=== PATIENT | male | born 1965 | race Caucasian/White ===

== ENCOUNTER 2022-08-29 09:41 | Observation (INO) | payer OTHER, SELFPAY ==
[2022-08-29 08:45] VITALS: BP 118/72; PULSE 98; RESP 20; TEMP 36; O2SAT 97
[2022-08-29 10:24] LABS: Abs Immature Grans 0.01 10^3/uL (0.0-0.06); Absolute Basophil Count 0.02 10^3/uL (0.0-0.2); Absolute Lymphocyte Count 0.54 10^3/uL (1.2-3.4); Absolute Monocyte Count 0.64 10^3/uL (0.1-0.8); Absolute Neutrophil Count 4.48 10^3/uL (1.2-6.7); Basophils % 0.4; HCT 42.6 % (40.0-50.0); HGB 14.6 g/dL (13.5-17.5); Immature Grans % 0.2; Lymphocytes % 9.5; MCH 31.1 pg (27.0-33.0); MCHC 34.3 % (32.0-36.0); MCV 91 fL (80-95); MPV 9.1 fL (8.0-11.0); Monocytes % 11.2; Neutrophils % 78.7; Platelet Count 207 10^3/uL (130-400); RBC 4.69 10^6/uL (4.36-5.78); RDW 12.4 % (11.8-14.1); RDW-SD 41.3 fL; WBC 5.69 10^3/uL (4.4-10.8)
--- NOTE | 2022-08-29 10:38 | W.PM.HP.N ---
Date of service: 08/29/22 Time of Service: 10:00 Assessment and Plan Assessment and plan (1) Ileus: Status: Acute Assessment and plan: 57-year-old man who has an ileus secondary to some sort of GI illness. He is not toxic in appearance. He is hemodynamically stable. His abdominal exam while distended is otherwise benign. I reviewed his CT scan myself. There is no free air or free fluid. Small bowel loops are diffusely dilated with no transition point and no air-fluid levels. The colon has some air in it throughout though some of it is decompressed as well. I specifically looked at the mesenteric vessels which are all patent and I do not appreciate any swirling. The appendix looks normal to me and has some air within it. The gallbladder does not look inflamed. None of the distended small bowel bardales appear thickened and there is no pneumatosis or any concerning sign around them. Overall the patient seems to have some sort of GI bug that is probably viral, especially considering his lab work is completely normal. He is slightly dehydrated which is not unexpected but that is about it. This does not seem to be an obstruction but rather just an ileus. The nausea, vomiting and diarrhea preceded any of the distention which is the exact opposite of an obstructive process. There is no role or indication for surgery. I think this is just going to pass with a little bit of time. Plan: # IV fluid # Analgesia as needed # Bowel rest # DVT prophylaxis History of Present Illness Narrative: I was called by [facility] ED to accept transfer of a 57-year-old man with abdominal discomfort and a CT scan showing a partial obstruction versus ileus. The patient arrived and I examined him at the bedside. The history he gives me is that he developed a strange and unusual cough for the last week and has not been able to get rid of it. Then 2 or 3 days ago he developed loose stools and jeanna diarrhea. That was also associated with some vomiting and he started developing some abdominal discomfort and cramping. Then yesterday, his stomach started becoming more and more bloated and the pain became more more intolerable. Throughout this he continued to vomit and have diarrhea. Today at the bedside, he is now not vomited since midnight. He does not have any nausea at this time. He has not been having much diarrhea anymore either but he admits that significant amounts of gas are being passed. He still has cramping abdominal discomfort and still is quite bloated and distended. His only intra-abdominal surgical history is that of an open umbilical hernia repair. PFSH All Active Problems (Updated 08/29/22 @ 15:18 by Jose Pinon MD) Ileus (Acute) Medical History (Updated 08/29/22 @ 15:18 by Jose Pinon MD) Ribs, multiple fractures Social History Smoking/Tobacco Use Status: Former Tobacco Use Smoking risk assessment performed?: Yes Alcohol Intake: current Alcohol Intake frequency: 3 or more drinks per day Alcohol type: hard liquor Drug use: Never Substance use type: does not use Do you feel safe at home: Yes Do you feel safe in your relationship?: Yes Meds Allergies and Home Medications Allergies Allergy/AdvReac Type Severity Reaction Status Date / Time Latex, Natural Rubber Allergy Intermediate Skin Rash Unverified 08/29/22 12:50 Home Medications Medication Instructions Recorded Confirmed Type garlic 1 cap PO DAILY 08/29/22 08/29/22 History mecobalamin (vitamin B12) 1,000 1 mcg PO DAILY 08/29/22 08/29/22 History mcg chewable tablet (B12 Active) multivitamin 1 tab PO DAILY 08/29/22 08/29/22 History pomegran fruit xt-pomegra seed 250 1 cap PO DAILY 08/29/22 08/29/22 History mg capsule Exam Narrative Exam Narrative: General: Nontoxic, mildly uncomfortable but otherwise interactive and friendly Neuro: Alert and oriented x3 Psych: Good mood and affect, good insight and understanding into his condition Abdomen: Soft, quite distended and tympanitic but without any peritoneal signs. There is really no tenderness to examination. Results Labs 08/29/22 10:12 08/29/22 10:12 Labs: Laboratory Results - last 24 hr 08/29/22 10:12 WBC 5.69 RBC 4.69 Hgb 14.6 Hct 42.6 MCV 91 MCH 31.1 MCHC 34.3 RDW 12.4 Plt Count 207 MPV 9.1 Immature Gran % 0.2 Neutrophils % 78.7 Lymphocytes % 9.5 Monocytes % 11.2 Eosinophils % 0.0 Basophils % 0.4 Nucleated RBC % 0.0 Absolute Neutrophils 4.48 Absolute Lymphocytes 0.54 L Absolute Monocytes 0.64 Absolute Eosinophils 0.00 Absolute Basophils 0.02 Time Spent Time spent with Patient: 55-74 minutes Time was spent: obtaining and/or reviewing separately otained hiistory, referring, communicating with other health palliative care physician, indepentently interpreting results, counseling the patient and care coordination
[2022-08-29] MEDS: Lactated Ringers 1,000 ML 125 ML IV ×2 (10:47→18:13)
[2022-08-29 10:50] LABS: Anion Gap 8.9 mmol/L (3-11); BUN 23 mg/dL (7-18); CO2 28.1 mmol/L (21.0-32.0); CREATININE 1.2 mg/dL (0.70-1.30); Calcium 8.3 mg/dL (8.5-10.1); Chloride 101 mmol/L (98-107); Estimated GFR 69.66 (mL/min/1.73m2); Glucose 98 mg/dL (74-106); Potassium 4.1 mmol/L (3.5-5.1); Sodium 138 mmol/L (136-145)
[2022-08-29] MEDS: Heparin 5,000 UNITS/ML VIAL 5000 UNITS SC ×2 (10:54→18:23)
[2022-08-29 12:12] LABS: Source Nasal/Nares
[2022-08-29 12:47] LABS: COVID-19 PCR Negative (Negative)
[2022-08-29] MEDS: Ketorolac 15 MG/ML VIAL IVP ×2 (13:12→18:13)
[2022-08-29] MEDS: ACETAMINOPHEN 1,000 MG/100 ML BTL 400 MG IVPB ×2 (13:12→18:13)
[2022-08-29 14:57] VITALS: BP 126/95; PULSE 93; RESP 17; TEMP 37; O2SAT 94
[2022-08-29 18:45] VITALS: BP 100/61
[2022-08-29 18:48] VITALS: BP 101/80
[2022-08-29 22:50] VITALS: BP 157/78; PULSE 82; RESP 18; TEMP 36.7; O2SAT 96
[2022-08-30] MEDS: Ketorolac 15 MG/ML VIAL IVP ×2 (00:10→06:22)
[2022-08-30] MEDS: ACETAMINOPHEN 1,000 MG/100 ML BTL 400 MG IVPB ×2 (00:10→06:22)
[2022-08-30] MEDS: Heparin 5,000 UNITS/ML VIAL 5000 UNITS SC ×2 (02:14→10:03)
[2022-08-30] MEDS: Lactated Ringers 1,000 ML 125 ML IV (03:32)
[2022-08-30] MEDS: Normal Saline Flush 10 ML SYR IVP (06:23)
--- NOTE | 2022-08-30 07:17 | PGE_ITS ---
Date of Service Date of service: 08/30/22 Time of Service: 07:17 Assessment and Plan Assessment and plan (1) Ileus: Status: Acute Assessment and plan: 57-year-old man who has an ileus secondary to some sort of GI illness. He is not toxic in appearance. He is hemodynamically stable. Feeling significantly improved this morning, after having several BMs overnight into this morning. He reports passing a significant amount of flatus. Ileus appears resolved. Will trial Clear liquid diet this morning and advance as tolerated. Activity as tolerated. Pain is resolved. D/C home later today, if tolerating increased PO intake. Agree with above Patient seen by me at 13:10. He had tolerated a clear liquid breakfast and regular food for lunch. Abdominal distention is gone. He is passing flatus and having BM's D/C Home Follow up with PCP as needed Subjective Subjective Interval history since last seen: Arrive with patient using the restroom. he states that he has had 4 BMs already this morning. He is feeling much better today. Denies any pain, nausea or vomi ting. Exam Const General: cooperative, healthy appearing and comfortable Orientation: alert and oriented x3 Resp Effort & Inspection: normal respiratory effort, no audible wheezes and no cough GI Inspection: normal to inspection and non-distended Palpation: soft, no guarding and nontender Objective Last Vital Signs Temp 36.7 C 08/29/22 22:50 Pulse 82 08/29/22 22:50 Resp 18 08/29/22 22:50 BP 157/78 H 08/29/22 22:50 Pulse Ox 96 08/29/22 22:50 Laboratory Results - last 24 hr 08/29/22 08/29/22 08/29/22 10:12 10:12 11:10 WBC 5.69 RBC 4.69 Hgb 14.6 Hct 42.6 MCV 91 MCH 31.1 MCHC 34.3 RDW 12.4 Plt Count 207 MPV 9.1 Immature Gran % 0.2 Neutrophils % 78.7 Lymphocytes % 9.5 Monocytes % 11.2 Eosinophils % 0.0 Basophils % 0.4 Nucleated RBC % 0.0 Absolute Neutrophils 4.48 Absolute Lymphocytes 0.54 L Absolute Monocytes 0.64 Absolute Eosinophils 0.00 Absolute Basophils 0.02 Sodium 138 Potassium 4.1 Chloride 101 Carbon Dioxide 28.1 Anion Gap 8.9 BUN 23 H Creatinine 1.2 Est GFR (CKD-EPI 2020) 69.66 Glucose 98 Calcium 8.3 L COVID-19 Source Nasal/Nares SARS-CoV-2 (PCR) Negative Time Spent with Patient Time Spent with Patient: <25 minutes Time was spent: obtaining and/or reviewing separately otained hiistory, indepentently interpreting results and counseling the patient
[2022-08-30 07:19] VITALS: BP 130/87; PULSE 87; RESP 16; TEMP 36; O2SAT 93
--- NOTE | 2022-08-30 07:37 | W.PM.PROGNOT ---
Date of Service Date of service: 08/30/22 Time of Service: 08:30 Assessment and Plan Assessment and plan (1) Ileus: Status: Acute Assessment and plan: 57-year-old man with an ileus secondary to a viral gastroenteritis. He is having good bowel function. He still has some distention left secondary to the ileus and that is not unexpected. Considering how well his bowels are working, his hemodynamic stability and that he is no longer vomiting or nauseated and has no pain, I think he can be given clear liquids and as long as he is tolerating clear liquids he can be discharged home later today. He can follow-up with his PCP. I instructed him to not have any regular food for a day or 2 and to only stay hydrated with clear liquids. Subjective Subjective Interval history since last seen: No issues overnight. He says the pain is pretty well gone. He still feels a little bloated but has been having copious amounts of diarrhea and passing lots of gas. His distended abdomen he says feels a little less. He has been tolerating some sips of clears. Exam Narrative Exam Narrative: General: Nontoxic, comfortable and interactive Neuro: Alert and oriented x3 Psych: Appropriate mood and affect, good insight and understanding Abdomen: Soft, still significantly distended but less than yesterday, there is no tenderness anywhere. Objective Last Vital Signs Temp 96.8 F L 08/30/22 07:19 Pulse 87 08/30/22 07:19 Resp 16 08/30/22 07:19 BP 130/87 08/30/22 07:19 Pulse Ox 93 08/30/22 07:19 Laboratory Results - last 24 hr 08/29/22 08/29/22 08/29/22 10:12 10:12 11:10 WBC 5.69 RBC 4.69 Hgb 14.6 Hct 42.6 MCV 91 MCH 31.1 MCHC 34.3 RDW 12.4 Plt Count 207 MPV 9.1 Immature Gran % 0.2 Neutrophils % 78.7 Lymphocytes % 9.5 Monocytes % 11.2 Eosinophils % 0.0 Basophils % 0.4 Nucleated RBC % 0.0 Absolute Neutrophils 4.48 Absolute Lymphocytes 0.54 L Absolute Monocytes 0.64 Absolute Eosinophils 0.00 Absolute Basophils 0.02 Sodium 138 Potassium 4.1 Chloride 101 Carbon Dioxide 28.1 Anion Gap 8.9 BUN 23 H Creatinine 1.2 Est GFR (CKD-EPI 2020) 69.66 Glucose 98 Calcium 8.3 L COVID-19 Source Nasal/Nares SARS-CoV-2 (PCR) Negative Time Spent with Patient Time Spent with Patient: <25 minutes Time was spent: counseling the patient
[2022-08-30 09:22] VITALS: RESP 16; O2SAT 97; O2SAT 98
--- NOTE | 2022-08-30 10:26 | INITIAL_ITS ---
- If Service Date Differs Date of service: 08/30/22 Time of Service: 10:26 Care Management Initial Assess REASON FOR HOSPITALIZATION:: Partial SBO PAST MEDICAL HISTORY/PAST SURGICAL HISTORY:: All Active Problems (Updated 08/29/22 @ 15:18 by Jose Pinon MD). Ileus (Acute). Medical History (Updated 08/29/22 @ 15:18 by Jose Pinon MD). Ribs, multiple fractures PREVIOUS FUNCTIONAL STATUS/SOCIAL/FAMILY SUPPORTS:: Holland lives in [place], [place] with his Sofya. He works at [employer] in [place]. He drives and is active and independent with his ADL's and in the community. CURRENT FUNCTIONAL STATUS:: Holland was sitting up in bed when CM met with him. He is awake, pleasant and easily engages in conversation. His diet is being advanced and he feels much better. He is hoping to discharge home later today. ADVANCE DIRECTIVES:: None on file Has patient been provided with info about the portal/API?: Yes Did the patient sign up for the portal?: No CODE STATUS:: Full Code INSURANCE COVERAGE / FINANCIAL ISSUES:: [facility] CURRENT HOME/COMMUNITY SERVICES/EQUIPMENT:: None PRIMARY CARE PHYSICIAN:: Dr. Dhillon POTENTIAL DISCHARGE NEEDS:: Return to work letter (noting return date and re strictions if any), discharge plan of care. PATIENT/FAMILY EDUCATION NEEDS:: Review discharge instructions, limitations and plan to follow up with community providers. Discuss ask me three. TRANSPORTATION:: Via private vehicle with . PLAN:: Holland will discharge home via private vehicle with , when medically ready per Surgical provider. He will follow up with community providers and discharge plan of care as prescribed. No new VNA services are indicated at this time.
--- NOTE | 2022-08-30 13:50 | W.PM.DS.N ---
Date of service: 08/30/22 Time of Service: 13:51 DS: Diagnosis Discharge Diagnosis (1) Ileus: Status: Acute Discharge Plan Disposition Patient Disposition: Home Condition: Stable Discharge Details Reason For Visit: Partial SBO Admit Date/Time: 08/29/22 09:41 Admit Provider: Jose Pinon Attending Provider: Jose Pinon Primary Care Provider: Marko Delgadillo Hospital Course Hospital Course: 57-year-old male presented to the ER with complaints of severe abdominal pain and bloating after having 2-day history of diarrhea and GI upset. Patient was admitted overnight for bowel rest and pain control. Overnight the patient's pain resolved and and he began having several bowel movements. In the morning we started a clear liquid diet and advanced to regular diet which she tolerated well. He no longer has any abdominal pain or discomfort. He is feeling comfortable and ready to go home. The etiology of symptoms were most likely viral in nature. Home Meds and New Rx's Prescriptions: Continued multivitamin Tablet 1 tab PO DAILY pomegran fruit xt-pomegra seed 250 mg Capsule 1 cap PO DAILY mecobalamin (vitamin B12) [B12 Active] 1,000 mcg Tablet,Chewable 1 mcg PO DAILY garlic Capsule 1 cap PO DAILY Discharge Instructions Instructions: Ileus (DC) Stand Alone Forms: Nursing Discharge Form Referrals: Marko Delgadillo [Primary Care Provider] - (Please call to make an appointment in the next 1-2 weeks ) Activity:: Activity as Tolerated Equipment/Supplies:: No Equipment Needed Diet:: As Tolerated Discharge Orders Discharge Orders: Discharge Order (Routine); Ordered 08/30/22 Ordered By: Cassie Blanco DS: Summary Time Spent with Patient providing and/or coordinating discharge services: Less than 30 minutes Status at Discharge Functional status at discharge: independent ambulation Overall status at discharge: patient is back to baseline Mental Status: mental status grossly normal Speech and Movement: speech and movement normal Mood: congruent mood Affect: normal affect Exam Const General: cooperative, healthy appearing and comfortable Orientation: alert and oriented x3 Resp Effort & Inspection: normal respiratory effort, no audible wheezes and no cough GI Inspection: normal to inspection and non-distended Palpation: soft, no guarding and nontender Psych Mental Status: mental status grossly normal Speech and Movement: speech and movement normal Mood: congruent mood Affect: normal affect DS: Data Vitals/I&O Vitals and I&O: Vital Signs Temperature 36.0 C L 08/30/22 07:19 Temperature Source Tympanic 08/30/22 07:19 Pulse 87 08/30/22 07:19 Pulse Rhythm Regular 08/30/22 08:00 Respiratory Rate 16 08/30/22 09:22 Respiratory Effort Normal, Non-Labored 08/30/22 08:00 Respiratory Depth Normal 08/30/22 08:00 Respiratory Pattern Normal 08/30/22 08:00 Blood Pressure 130/87 08/30/22 07:19 Pulse Oximetry 98 08/30/22 09:22 Oxygen Delivery Method Room Air 08/30/22 09:22 Oxygen Flow Rate 0 08/30/22 09:22 Pain Level 2 08/30/22 06:22 Intake & Output 08/29/22 08/30/22 08/30/22 18:59 06:59 18:59 Intake Total 1189.167 / 2439.167 1250 / 2439.167 110 / 110 Output Total 125 / 575 450 / 575 Balance 1064.167 / 1864.167 800 / 1864.167 110 / 110 Weight 127.1 kg Intake: IV 1129.167 / 2229.167 1100 / 2229.167 110 / 110 Oral 60 / 210 150 / 210 Output: Urine 125 / 575 450 / 575 Other: Urine Color Yellow Dark Joana Urine Appearance Clear Clear Urine Odor Strong Comment mixed stool and urine x2 MARLEN due to patient urinated in the toilet Stool Size Small Stool Characteristics Liquid Liquid Garcia Brown Voiding Methods Urinal Urinal Toilet PFSH All Active Problems Ileus (Acute) Medical History Ankle fracture, left Ribs, multiple fractures Right arm fracture Social History Smoking/Tobacco Use Status: Former Tobacco Use Smoking risk assessment performed?: Yes Alcohol Intake: current Alcohol Intake frequency: 3 or more drinks per day Alcohol type: hard liquor Drug use: Never Substance use type: does not use Do you feel safe at home: Yes Do you feel safe in your relationship?: Yes Time Spent with Patient Time Spent with Patient: <45 minutes Time was spent: preparing to see the patient(eg.review tests), indepentently interpreting results and counseling the patient
--- NOTE | 2022-08-30 13:52 | CHAPLAIN ---
Holland was up in the chair when I visited. He is from [place], [place]. We talked about bit about [place] and [place], [place]. He expects to be discharged home later today. His was just arriving as I was leaving.
--- NOTE | 2022-08-30 15:33 | PDOC.CMDIS ---
- If Service Date Differs Date of service: 08/30/22 Time of Service: 15:33 LACE Index Scoring Tool - Questions: Length of Stay (in days): 1 Acuity (Admit via E.D.?): No E.D. Visits: 0 - Answers: Total Score: 1 Risk of Readmission: Low Risk Care Management Discharge Reason for Hospitalization: Partial SBO Discharge Plan: Holland is discharged home via private vehicle with . He will follow up with community providers and discharge plan of care as prescribed. Return to work letter is provided to patient prior to discharge. Patient/Family Education Needs: Review discharge instructions, limitations, medications and plan to follow up with community providers. Discuss ask me three.
== END 2022-08-30 14:16 | disposition home or self-care (01) ==
PROVIDERS: Admitting Provider Student in an Organized Health Care Education/Training Program; PCP Nurse Practitioner; Visit Provider Student in an Organized Health Care Education/Training Program
DX: K56.7 Ileus, unspecified (principal); A08.4 Viral intestinal infection, unspecified; Z20.822 Contact with and (suspected) exposure to COVID-19; E86.0 Dehydration; Z87.891 Personal history of nicotine dependence
CPT/HCPCS: 36415; 80048; 87635; 96361; 96365; 96366; 96372; 96375; 85025; G0378; J0131; J1644; J1885